=== PATIENT | male | born 1945 | race Caucasian/White ===

== ENCOUNTER 2016-12-19 02:10 | Inpatient (IN) | payer MEDICARE, OTHER ==
[2016-12-19] MEDS ORDERED: NITROGLYCERIN SL TABS 0.4 MG TAB SUBLINGUAL STA (02:15)
[2016-12-19] MEDS ORDERED: ASPIRIN 81 MG CHEW PO STA (02:15)
[2016-12-19] MEDS ORDERED: HEPARIN SODIUM,PORCINE/D5W PMX 25,000 UNIT in DEXTROSE/WATER 1 500ML.BAG IV SCH (02:30)
[2016-12-19] MEDS ORDERED: HEPARIN SODIUM,PORCINE 5,000 UNIT/ML 1 ML VIAL IV ONE (02:30)
[2016-12-19] MEDS ORDERED: HEPARIN SODIUM,PORCINE 5,000 UNIT/ML 1 ML VIAL IV PRN (02:30)
[2016-12-19] MEDS ORDERED: NITROGLYCERIN-D5W PMX 50 MG in DEXTROSE/WATER 1 250ML.BAG IV ONE (02:31)
[2016-12-19 02:33] LABS: Basophils # (A) 0.1 k/uL (0-0.2); Basophils % (A) 1 %; CH 30.3; Eosinophils # (A) 0.2 k/uL (0-0.7); Eosinophils % (A) 2 %; HCT 37.4 % (39.0-53.0); HDW 2.52; HGB 12.3 gm/dL (13.0-17.5); Luc % (Auto) 3; Lymphocytes # (A) 3.2 k/uL (1.0-4.8); Lymphocytes % (A) 42 %; MCH 29.5 pg (25.0-35.0); MCV 89.5 fL (80.0-100.0); Mean Platelet Volume 7.7; Monocytes # (A) 0.4 k/uL (0-1.0); Monocytes % (A) 6 %; Neutrophils # (A) 3.7 k/uL (1.3-7.7); Neutrophils % (A) 47 %; RBC 4.18 m/uL (4.30-5.90); RDW 13.8 % (11.5-15.5); WBC 7.7 k/uL (3.8-10.6); WBC (Perox) 7.81
[2016-12-19 02:43] LABS: ALT 46 U/L (21-72); AST 27 U/L (17-59); Alkaline Phosphatase 42 U/L (38-126); Amylase 64 U/L (30-110); Anion Gap 11 mmol/L; Blood Urea Nitrogen 26 mg/dL (9-20); Calcium 9.9 mg/dL (8.4-10.2); Carbon Dioxide 25 mmol/L (22-30); Chloride 108 mmol/L (98-107); Glucose 218 mg/dL (74-99); Magnesium 1.7 mg/dL (1.6-2.3); Non-African American GFR(MDRD) >60 (>60 ml/min/1.73 sqM); Potassium 4.3 mmol/L (3.5-5.1); Sodium 144 mmol/L (137-145); Total Bilirubin 0.4 mg/dL (0.2-1.3)
--- NOTE | 2016-12-19 02:43 | XR ---
EXAM: XR Chest, 1 View CLINICAL HISTORY: Reason: chest pain TECHNIQUE: Frontal view of the chest. COMPARISON: No relevant prior studies available. FINDINGS: Lungs: Unremarkable. No consolidation. Pleural space: Unremarkable. No pneumothorax. Heart: Mildly prominent with central vascular congestion. Mediastinum: Unremarkable. Bones/joints: Unremarkable. IMPRESSION: Mildly enlarged cardiac silhouette with central vascular congestion. No focal consolidative process or pleural effusions.
[2016-12-19 02:47] LABS: INR 1.1 (<1.2); Partial Thromboplastin Time 22.4 sec (22.0-30.0); Prothrombin Time 11.1 sec (9.0-12.0)
[2016-12-19 02:57] LABS: Creatine Kinase 142 U/L (55-170)
[2016-12-19 03:09] LABS: Creatine Kinase MB 1.9 ng/mL (0.0-2.4); Troponin I <0.012 ng/mL (0.000-0.034)
[2016-12-19] MEDS ORDERED: NITROGLYCERIN SL TABS 0.4 MG TAB SUBLINGUAL PRN ×3 (04:17→12:16)
[2016-12-19] MEDS ORDERED: INSULIN REGULAR 100 UNIT/ML VIAL SQ STA (04:29)
--- NOTE | 2016-12-19 04:29 | ED ---
Chest Pain HPI - General Chief Complaint: Chest Pain Stated Complaint: Chest Pain Time Seen by Provider: 12/19/16 02:14 Source: patient Mode of arrival: wheelchair Limitations: no limitations - History of Present Illness Initial Comments: This patient is 70-year-old man who presents to be evaluated for substernal chest pain. Patient states that the pain started less than hour before he arrived here, while he was sitting watching television. The patient states that it feels like a heaviness. He also has a numb feeling to his left upper extremity. Patient also felt like he was breaking into a cold sweat and he was a little short of breath. He states that the symptoms remind him of when he had to have a stent in 2001. Patient states that he took aspirin at home and he also tried a nitroglycerin but believes that the nitroglycerin was too old to provide much relief. MD Complaint: chest pain -: minutes(s) Onset: during rest Pain Location: substernal Pain Radiation: LUE Severity: moderate Quality: heaviness Consistency: constant Improves With: nothing Worsens With: nothing Anginal Symptoms: diaphoresis, dyspnea Treatments Prior to Arrival: aspirin, nitroglycerin - Related Data Home Medications Medication Instructions Recorded Confirmed Aspirin 325 mg PO DAILY 12/19/16 12/19/16 Atenolol [Tenormin] 25 mg PO DAILY 12/19/16 12/19/16 Fenofibrate Nanocrystallized 145 mg PO DAILY 12/19/16 12/19/16 [Tricor] Glimepiride [Amaryl] 4 mg PO BID 12/19/16 12/19/16 Sildenafil Citrate [Viagra] 100 mg PO ONCE 12/19/16 12/19/16 Simvastatin 80 mg PO DAILY 12/19/16 12/19/16 metFORMIN HCL 1,000 mg PO BID 12/19/16 12/19/16 Allergies Allergy/AdvReac Type Severity Reaction Status Date / Time cat dander Allergy Rash/Hives Verified 12/19/16 02:16 Egg Derived Allergy Rash/Hives Verified 12/19/16 02:16 Review of Systems ROS Statement: Those systems with pertinent positive or pertinent negative responses have been documented in the HPI. ROS Other: All systems not noted in ROS Statement are negative. Constitutional: Denies: fever, chills, weakness Respiratory: Reports: dyspnea. Denies: cough Cardiovascular: Reports: chest pain. Denies: palpitations, orthopnea, edema Gastrointestinal: Denies: abdominal pain, nausea, vomiting Genitourinary: Denies: dysuria, hematuria Musculoskeletal: Denies: back pain Skin: Denies: rash Neurological: Denies: headache, weakness, numbness EKG Findings - EKG Results: EKG: interpreted by MARAD, sinus rhythm, normal axis, normal QRS EKG shows: bradycardia (Rate approximately 45 bpm) - Blocks, [place], Hypertrophy, ST Abn: Repolarization changes or abnormalities: nonspecific abnormality, ST segment, and/or T wave Past Medical History Past Medical History: Diabetes Mellitus, Hyperlipidemia, Hypertension, Myocardial Infarction ([place]) History of Any Multi-Drug Resistant Organisms: None Reported Past Surgical History: Heart Catheterization With Stent, Hernia Repair, Tonsillectomy Additional Past Surgical History / Comment(s): wrist fracture Past Psychological History: No Psychological Hx Reported Smoking Status: Former smoker Past Alcohol Use History: None Reported Past Drug Use History: None Reported General Exam Limitations: no limitations General appearance: alert, in no apparent distress Head exam: Present: atraumatic, normocephalic Eye exam: Present: normal appearance. Absent: scleral icterus, conjunctival injection Respiratory exam: Present: normal lung sounds bilaterally. Absent: respiratory distress, wheezes, rales, rhonchi, stridor Cardiovascular Exam: Present: regular rate, normal rhythm, normal heart sounds. Absent: systolic murmur, diastolic murmur, rubs, gallop GI/Abdominal exam: Present: soft. Absent: distended, tenderness, guarding, rebound, rigid Extremities exam: Present: normal inspection, normal capillary refill. Absent: pedal edema, calf tenderness Back exam: Present: normal inspection. Absent: CVA tenderness (R), CVA tenderness (L) Neurological exam: Present: alert Skin exam: Present: warm, dry, intact, normal color. Absent: rash Course Vital Signs 12/19/16 12/19/16 12/19/16 02:11 02:58 04:07 Temperature 96.9 F L 96.9 F L Pulse Rate 44 L 56 L 53 L Respiratory 16 16 16 Rate Blood Pressure 155/73 150/73 126/65 O2 Sat by Pulse 96 97 98 Oximetry Critical Care Time Critical Care Time: Yes (35 minutes) Disposition Clinical Impression: Chest pain Disposition: ADMITTED IP TO THIS HOSP Condition: Fair
[2016-12-19] MEDS ORDERED: MORPHINE SULFATE 4 MG/ML SYRINGE IV STA (04:32)
[2016-12-19 04:54] LABS: Glucose,Whole Blood 211 mg/dL (75-99)
[2016-12-19 05:51] LABS: Glucose,Whole Blood 205 mg/dL (75-99)
[2016-12-19] MEDS: ATORVASTATIN 40 MG TAB PO SCH (08:11)
[2016-12-19] MEDS: FENOFIBRATE 160 MG TAB PO SCH (08:11)
[2016-12-19] MEDS: GLIMEPIRIDE 4 MG TAB PO SCH ×3 (08:11→16:56)
[2016-12-19] MEDS: INSULIN LISPRO (humaLOG) 300 UNIT/3 ML VIAL SQ SCH ×4 (08:11→21:01)
--- NOTE | 2016-12-19 08:41 | P.CRDCN ---
History of Present Illness Consult reason: chest pain History of present illness: 70-year-old male patient presenting with chest discomfort at rest that reminded him of his previous chest discomfort prior to coronary stenting about 15 years back. He was also a bit sweaty. He is on appropriate medical treatment for CAD status post stenting Examination is normal vitals are stable heart sounds are normal no murmurs EKG was reviewed and does not show any definite ST segment abnormalities but we don't have an EKG for comparison. EKG from the office will be obtained today First cardiac enzyme is normal he is on IV heparin I will restart atenolol 25 mg by mouth daily and should not be held for heart rates of 50 bpm Please see full dictation by Dr. byrd Past Medical History Past Medical History: Diabetes Mellitus, Hyperlipidemia, Hypertension, Myocardial Infarction ([place]) Last Myocardial Infarction Date:: 2001 History of Any Multi-Drug Resistant Organisms: None Reported Past Surgical History: Heart Catheterization With Stent, Hernia Repair, Tonsillectomy Additional Past Surgical History / Comment(s): wrist fracture Date of Last Stent Placement:: 2001 Past Psychological History: No Psychological Hx Reported Smoking Status: Former smoker Past Alcohol Use History: None Reported Past Drug Use History: None Reported - Past Family History Father Additional Family Medical History / Comment(s): from a aneurysm at the age of 47-48 Mother Family Medical History: Hypertension Medications and Allergies Home Medications Medication Instructions Recorded Confirmed Type Aspirin 325 mg PO DAILY 12/19/16 12/19/16 History Atenolol [Tenormin] 25 mg PO DAILY 12/19/16 12/19/16 History Fenofibrate Nanocrystallized 145 mg PO DAILY 12/19/16 12/19/16 History [Tricor] Glimepiride [Amaryl] 4 mg PO BID 12/19/16 12/19/16 History Sildenafil Citrate [Viagra] 100 mg PO ONCE 12/19/16 12/19/16 History Simvastatin 80 mg PO DAILY 12/19/16 12/19/16 History metFORMIN HCL 1,000 mg PO BID 12/19/16 12/19/16 History Allergies Allergy/AdvReac Type Severity Reaction Status Date / Time cat dander Allergy Rash/Hives Verified 12/19/16 02:16 Egg Derived Allergy Rash/Hives Verified 12/19/16 02:16 Physical Exam Vitals: Vital Signs Temp Pulse Pulse Pulse Resp BP BP 12/19/16 08:00 97.1 F L 56 L 17 119/71 12/19/16 07:59 18 12/19/16 06:45 50 L 46 L 18 12/19/16 04:37 97.1 F L 84 18 116/70 12/19/16 04:07 96.9 F L 53 L 16 126/65 12/19/16 02:58 56 L 16 150/73 12/19/16 02:11 96.9 F L 44 L 16 155/73 Pulse Ox 12/19/16 08:00 97 12/19/16 07:59 12/19/16 06:45 12/19/16 04:37 98 12/19/16 04:07 98 12/19/16 02:58 97 12/19/16 02:11 96 Intake and Output 12/18/16 12/19/16 12/19/16 22:59 06:59 14:59 Intake Total 526 Balance 526 Intake: IV 40 Heparin Sodium,Porcine/ 40 D5w Pmx 25,000 unit In Dextrose/Water 1 500ml. bag @ 12 UNITS/KG/HR 19. 81 mls/hr IV .Q24H [facility] Rx #:[id number] Intake, IV Titration 6 Amount Nitroglycerin-D5w Pmx 50 6 mg In Dextrose/Water 1 250ml.bag @ 10 MCG/MIN 3 mls/hr IV .Q24H ONE Rx#: [id number] Oral 480 Other: Voiding Method Toilet Toilet # Voids 1 Weight 86 kg Results 12/19/16 02:10 12/19/16 02:10 Cardiac Enzymes 12/19/16 12/19/16 Range/Units 02:10 02:10 AST 27 (17-59) U/L CK-MB (CK-2) 1.9 (0.0-2.4) ng/mL Troponin I <0.012 (0.000-0.034) ng/mL Coagulation 12/19/16 Range/Units 02:10 PT 11.1 (9.0-12.0) sec APTT 22.4 (22.0-30.0) sec CBC 12/19/16 Range/Units 02:10 WBC 7.7 (3.8-10.6) k/uL RBC 4.18 L (4.30-5.90) m/uL Hgb 12.3 L (13.0-17.5) gm/dL Hct 37.4 L (39.0-53.0) % Plt Count 223 (150-450) k/uL Comprehensive Metabolic Panel 12/19/16 Range/Units 02:10 Sodium 144 (137-145) mmol/L Potassium 4.3 (3.5-5.1) mmol/L Chloride 108 H (98-107) mmol/L Carbon Dioxide 25 (22-30) mmol/L BUN 26 H (9-20) mg/dL Creatinine 1.00 (0.66-1.25) mg/dL Glucose 218 H (74-99) mg/dL Calcium 9.9 (8.4-10.2) mg/dL AST 27 (17-59) U/L ALT 46 (21-72) U/L Alkaline Phosphatase 42 (38-126) U/L Total Protein 7.0 (6.3-8.2) g/dL Albumin 4.3 (3.5-5.0) g/dL Current Medications Generic Name Dose Route Start Last Admin Trade Name Freq PRN Reason Stop Dose Admin Aspirin 81 mg 12/19/16 09:00 Aspirin PO DAILY [facility] Atorvastatin Calcium 40 mg 12/19/16 09:00 12/19/16 08:11 Lipitor PO 40 mg DAILY [facility] Administration Fenofibrate 160 mg 12/19/16 09:00 12/19/16 08:11 Lofibra PO 160 mg DAILY [facility] Administration Glimepiride 4 mg 12/19/16 07:30 12/19/16 08:11 Amaryl PO 4 mg BID-W/MEALS [facility] Administration Heparin Sodium (Porcine) 0 unit 12/19/16 02:30 Heparin IV PER PROTOCOL PRN Low PTT Protocol Heparin Sodium/Dextrose 25,000 500 mls @ 19.81 mls/hr 12/19/16 02:30 02:53 unit/ IV Solution IV 12 units/kg/hr .Q24H [facility] 19.81 mls/hr Protocol Administration 12 UNITS/KG/HR Nitroglycerin/Dextrose 50 mg/ 250 mls @ 3 mls/hr 12/19/16 02:31 12/19/16 02: 52 IV Solution IV 12/20/16 02:30 10 mcg/min .Q24H ONE 3 mls/hr Protocol Administration 10 MCG/MIN Insulin Human Lispro 0 unit 12/19/16 07:30 12/19/16 08:11 Humalog SQ Not Given ACHS [facility] Protocol Nitroglycerin 0.4 mg 12/19/16 04:17 Nitrostat SUBLINGUAL Q5M PRN Chest Pain Intake and Output 12/18/16 12/19/16 12/19/16 22:59 06:59 14:59 Intake Total 526 Balance 526 Intake: IV 40 Heparin Sodium,Porcine/ 40 D5w Pmx 25,000 unit In Dextrose/Water 1 500ml. bag @ 12 UNITS/KG/HR 19. 81 mls/hr IV .Q24H [facility] Rx #:[id number] Intake, IV Titration 6 Amount Nitroglycerin-D5w Pmx 50 6 mg In Dextrose/Water 1 250ml.bag @ 10 MCG/MIN 3 mls/hr IV .Q24H ONE Rx#: [id number] Oral 480 Other: Voiding Method Toilet Toilet # Voids 1 Weight 86 kg 12/19/16 02:10 12/19/16 02:10
--- NOTE | 2016-12-19 08:42 | P.CRDCN ---
History of Present Illness Consult date: 12/19/16 Requesting physician: Axel Holt Consult reason: chest pain Chief complaint: Chest pain History of present illness: This is a pleasant 70-year-old gentleman with history of coronary artery disease and prior stenting of the proximal LAD in 2001, he lives up [place] at that time when the procedure was done, he has history of diabetes, hypertension, hyperlipidemia, he is a nonsmoker. Exercises on the treadmill regularly. He states that around midnight last night he developed midsternal chest pressure and heaviness with associated diaphoresis. He states that the symptoms were exactly what he had in 2001. Patient had old nitroglycerin at home that he attempted to take without relief of symptoms, he took 2 baby aspirins and came to ER. Blood pressure on arrival here 155/70, heart rate in the 40s to 50s and temperature 96.9, he is 96% on room air. Chest x-ray shows mildly enlarged cardiac silhouette with central vascular congestion. EKG shows sinus bradycardia with anterior ST-T wave changes. EKG this morning shows sinus bradycardia with anterior ST-T wave changes. White blood cell count 7.7, hemoglobin 12.3, platelet count 223. D-dimer 0.4. Potassium 4.3, BUN 26, creatinine 1.0. Mag 1.7. Initial troponin negative. He still has mild chest pressure this morning, on heparin and nitro drips. Past Medical History Past Medical History: Diabetes Mellitus, Hyperlipidemia, Hypertension, Myocardial Infarction ([place]) Last Myocardial Infarction Date:: 2001 History of Any Multi-Drug Resistant Organisms: None Reported Past Surgical History: Heart Catheterization With Stent, Hernia Repair, Tonsillectomy Additional Past Surgical History / Comment(s): wrist fracture Date of Last Stent Placement:: 2001 Past Psychological History: No Psychological Hx Reported Smoking Status: Former smoker Past Alcohol Use History: None Reported Past Drug Use History: None Reported - Past Family History Father Additional Family Medical History / Comment(s): from a aneurysm at the age of 47-48 Mother Family Medical History: Hypertension Medications and Allergies Home Medications Medication Instructions Recorded Confirmed Type Aspirin 325 mg PO DAILY 12/19/16 12/19/16 History Atenolol [Tenormin] 25 mg PO DAILY 12/19/16 12/19/16 History Fenofibrate Nanocrystallized 145 mg PO DAILY 12/19/16 12/19/16 History [Tricor] Glimepiride [Amaryl] 4 mg PO BID 12/19/16 12/19/16 History Sildenafil Citrate [Viagra] 100 mg PO ONCE 12/19/16 12/19/16 History Simvastatin 80 mg PO DAILY 12/19/16 12/19/16 History metFORMIN HCL 1,000 mg PO BID 12/19/16 12/19/16 History Allergies Allergy/AdvReac Type Severity Reaction Status Date / Time cat dander Allergy Rash/Hives Verified 12/19/16 02:16 Egg Derived Allergy Rash/Hives Verified 12/19/16 02:16 Physical Exam Vitals: Vital Signs Temp Pulse Pulse Pulse Resp BP BP 12/19/16 08:00 97.1 F L 56 L 17 119/71 12/19/16 07:59 18 12/19/16 06:45 50 L 46 L 18 12/19/16 04:37 97.1 F L 84 18 116/70 12/19/16 04:07 96.9 F L 53 L 16 126/65 12/19/16 02:58 56 L 16 150/73 12/19/16 02:11 96.9 F L 44 L 16 155/73 Pulse Ox 12/19/16 08:00 97 12/19/16 07:59 12/19/16 06:45 12/19/16 04:37 98 12/19/16 04:07 98 12/19/16 02:58 97 12/19/16 02:11 96 Intake and Output 12/18/16 12/19/16 12/19/16 22:59 06:59 14:59 Intake Total 526 Balance 526 Intake: IV 40 Heparin Sodium,Porcine/ 40 D5w Pmx 25,000 unit In Dextrose/Water 1 500ml. bag @ 12 UNITS/KG/HR 19. 81 mls/hr IV .Q24H [facility] Rx #:[id number] Intake, IV Titration 6 Amount Nitroglycerin-D5w Pmx 50 6 mg In Dextrose/Water 1 250ml.bag @ 10 MCG/MIN 3 mls/hr IV .Q24H [facility] Rx#: [id number] Oral 480 Other: Voiding Method Toilet Toilet # Voids 1 Weight 86 kg PHYSICAL EXAMINATION: HEENT: Head is atraumatic, normocephalic. Pupils equal, round. Neck is supple. There is no elevated jugular venous pressure. HEART EXAMINATION: Heart S1, S2 normal. No murmur or gallop heard. CHEST EXAMINATION: Lungs are clear to auscultation and precussion. No chest wall tenderness is noted on palpation or with deep breathing. ABDOMEN: Soft, nontender. Bowel sounds are heard. No organomegaly noted. EXTREMITIES: 2+ peripheral pulses with no evidence of peripheral edema and no calf tenderness noted. NEUROLOGIC patient is awake, alert and oriented -3. . Results 12/19/16 02:10 12/19/16 02:10 Cardiac Enzymes 12/19/16 12/19/16 Range/Units 02:10 02:10 AST 27 (17-59) U/L CK-MB (CK-2) 1.9 (0.0-2.4) ng/mL Troponin I <0.012 (0.000-0.034) ng/mL Coagulation 12/19/16 Range/Units 02:10 PT 11.1 (9.0-12.0) sec APTT 22.4 (22.0-30.0) sec CBC 12/19/16 Range/Units 02:10 WBC 7.7 (3.8-10.6) k/uL RBC 4.18 L (4.30-5.90) m/uL Hgb 12.3 L (13.0-17.5) gm/dL Hct 37.4 L (39.0-53.0) % Plt Count 223 (150-450) k/uL Comprehensive Metabolic Panel 12/19/16 Range/Units 02:10 Sodium 144 (137-145) mmol/L Potassium 4.3 (3.5-5.1) mmol/L Chloride 108 H (98-107) mmol/L Carbon Dioxide 25 (22-30) mmol/L BUN 26 H (9-20) mg/dL Creatinine 1.00 (0.66-1.25) mg/dL Glucose 218 H (74-99) mg/dL Calcium 9.9 (8.4-10.2) mg/dL AST 27 (17-59) U/L ALT 46 (21-72) U/L Alkaline Phosphatase 42 (38-126) U/L Total Protein 7.0 (6.3-8.2) g/dL Albumin 4.3 (3.5-5.0) g/dL Current Medications Generic Name Dose Route Start Last Admin Trade Name Nita PRN Reason Stop Dose Admin Aspirin 325 mg 12/20/16 09:00 Aspirin PO DAILY [facility] Atorvastatin Calcium 40 mg 12/19/16 09:00 12/19/16 08:11 Lipitor PO 40 mg DAILY [facility] Administration Fenofibrate 160 mg 12/19/16 09:00 12/19/16 08:11 Lofibra PO 160 mg DAILY [facility] Administration Glimepiride 4 mg 12/19/16 07:30 12/19/16 08:11 Amaryl PO 4 mg BID-W/MEALS [facility] Administration Heparin Sodium (Porcine) 0 unit 12/19/16 02:30 Heparin IV PER PROTOCOL PRN Low PTT Protocol Heparin Sodium/Dextrose 25,000 500 mls @ 19.81 mls/hr 12/19/16 02:30 02:53 unit/ IV Solution IV 12 units/kg/hr .Q24H [facility] 19.81 mls/hr Protocol Administration 12 UNITS/KG/HR Nitroglycerin/Dextrose 50 mg/ 250 mls @ 3 mls/hr 12/19/16 02:31 12/19/16 02: 52 IV Solution IV 12/20/16 02:30 10 mcg/min .Q24H ONE 3 mls/hr Protocol Administration 10 MCG/MIN Insulin Human Lispro 0 unit 12/19/16 07:30 12/19/16 08:11 Humalog SQ Not Given ACHS [facility] Protocol Nitroglycerin 0.4 mg 12/19/16 04:17 Nitrostat SUBLINGUAL Q5M PRN Chest Pain Intake and Output 12/18/16 12/19/16 12/19/16 22:59 06:59 14:59 Intake Total 526 Balance 526 Intake: IV 40 Heparin Sodium,Porcine/ 40 D5w Pmx 25,000 unit In Dextrose/Water 1 500ml. bag @ 12 UNITS/KG/HR 19. 81 mls/hr IV .Q24H [facility] Rx #:[id number] Intake, IV Titration 6 Amount Nitroglycerin-D5w Pmx 50 6 mg In Dextrose/Water 1 250ml.bag @ 10 MCG/MIN 3 mls/hr IV .Q24H [facility] Rx#: [id number] Oral 480 Other: Voiding Method Toilet Toilet # Voids 1 Weight 86 kg 12/19/16 02:10 12/19/16 02:10 EKG Interpretations (text) EKG shows normal sinus rhythm with nonspecific changes in the anterior leads. Assessment and Plan Plan: Assessment and Plan #1 chest discomfort suggestive of possible acute coronary syndrome. EKG shows normal sinus rhythm with nonspecific changes in the anterior leads. Initial troponin negative #2 known history of coronary artery disease with prior LAD stenting in 2001 #3 hypertension #4 diabetes #5 hyperlipidemia Plan We will obtain a stat echocardiogram with Doppler study. Continue IV heparin and IV nitroglycerin. Resume atenolol. Lipid profile. Further recommendations to follow. DNP note has been reviewed, I agree with a documented findings and plan of care. Patient was seen and examined.
[2016-12-19] MEDS: ASPIRIN 81 MG CHEW PO SCH (09:26)
--- NOTE | 2016-12-19 09:42 | ECHOF ---
Referral Reason:assess lvf MEASUREMENTS -------- HEIGHT: 172.7 cm WEIGHT: 85.7 kg BP: 119/71 RVIDd: 3.4 cm (< 3.3) IVSd: 1.5 cm (0.6 - 1.1) LVIDd: 4.6 cm (3.9 - 5.3) LVPWd: 1.5 cm (0.6 - 1.1) EDV(Teich): 95 ml IVSs: 2.0 cm LVIDs: 3.1 cm LVPWs: 2.0 cm %IVS Thck: 33 % ESV(Teich): 38 ml EF(Teich): 60 % %FS: 32 % SV(Teich): 58 ml LA Diam: 4.5 cm (2.7 - 3.8) IVC: 2.8 cm LALs A4C: 6.5 cm LAAs A4C: 28.8 cm LAESV A-L A4C: 108 ml LAESV MOD A4C: 103 ml LALs A2C: 5.7 cm LAAs A2C: 24.7 cm LAESV A-L A2C: 90 ml LAESV MOD A2C: 87 ml LAESV(A-L): 105 ml LAESV Index (A-L): 52.57 ml/m Ao Diam: 3.4 cm (2.0 - 3.7) AV Cusp: 2.5 cm (1.5 - 2.6) MV EXCURSION: 21.800 mm (> 18.000) MV EF SLOPE: 15 mm/s (70 - 150) EPSS: 0.9 cm MV E Darron: 1.31 m/s MV DecT: 437 ms MV Dec [place]: 3.0 m/s MV A Darron: 1.52 m/s MV E/A Ratio: 0.86 MV PHT: 127 ms E/E': 33.07 E': 0.04 m/s MV Vmax: 1.81 m/s MV Vmean: 0.90 m/s MV maxP.17 mmHg MV meanP.96 mmHg MV VTI: 65.8 cm AV Vmax: 1.17 m/s AV maxP.43 mmHg AR Vmax: 2.82 m/s AR maxP.79 mmHg AR PHT: 989 ms AR Dec Time: 3411 ms AR Dec [place]: 0.8 m/s FINDINGS -------- Sinus rhythm. This was a technically good study. The left ventricular size is normal. There is moderate concentric left ventricular hypertrophy. Overall left ventricular systolic function is normal with, an EF between 55 - 60 %. The right ventricle is mildly enlarged. LA is severely dilated >40 ml/m2 The right atrium is normal in size. There is mild aortic valve sclerosis. There is mild aortic regurgitation. The mitral valve leaflets are mild to moderately thickened. Mild mitral annular calcification present. Mild mitral regurgitation is present. The peak and mean MV gradients are 13.17mmHg 3.96mmHg as measured by doppler. The tricuspid valve appears structurally normal. Trace/mild (physiologic) pulmonic regurgitation. The aortic root size is normal. Normal inferior vena cava with normal inspiratory collapse consistent with estimated right atrial pressure of 5 mmHg. There is no pericardial effusion. CONCLUSIONS -------- 1. Sinus rhythm. 2. There is mild aortic regurgitation. 3. The mitral valve leaflets are mild to moderately thickened. 4. Mild mitral annular calcification present. 5. Mild mitral regurgitation is present. 6. The peak and mean MV gradients are 13.17mmHg 3.96mmHg as measured by doppler. 7. The tricuspid valve appears structurally normal. 8. Trace/mild (physiologic) pulmonic regurgitation. 9. The aortic root size is normal. 10. Normal inferior vena cava with normal inspiratory collapse consistent with estimated right atrial pressure of 5 mmHg. 11. There is no pericardial effusion. 12. This was a technically good study. 13. The left ventricular size is normal. 14. There is moderate concentric left ventricular hypertrophy. 15. Overall left ventricular systolic function is normal with, an EF between 55 - 60 %. 16. The right ventricle is mildly enlarged. 17. LA is severely dilated >40 ml/m2 18. The right atrium is normal in size. 19. There is mild aortic valve sclerosis. HUMAN SERVICES SUPERVISOR: Katlyn Gupta RDCS
[2016-12-19 09:43] LABS: Creatine Kinase MB 42.5 ng/mL (0.0-2.4); Troponin I 4.52 ng/mL (0.000-0.034)
[2016-12-19] MEDS ORDERED: ATORVASTATIN 80 MG TAB PO STA (09:55)
[2016-12-19] MEDS ORDERED: SODIUM CHLORIDE 0.9% 1,000 ML in EMPTY BAG 1 BAG IV ONE (09:55)
[2016-12-19] MEDS ORDERED: ALPRAZolam 0.25 MG TAB PO PRN (09:55)
[2016-12-19] MEDS ORDERED: ALPRAZolam 0.5 MG TAB PO PRN (09:55)
[2016-12-19] MEDS ORDERED: ASPIRIN 325 MG TAB PO STA (09:55)
[2016-12-19 09:59] LABS: Cholesterol 129 mg/dL (<200); HDL Cholesterol 38 mg/dL (40-60)
[2016-12-19] MEDS ORDERED: HEPARIN SODIUM 1,000 UN/ML (10ML VL) ONE (10:37)
[2016-12-19] MEDS ORDERED: MIDAZOLAM 2 MG/2 ML VIAL ONE (10:37)
[2016-12-19] MEDS ORDERED: VERAPAMIL 2.5 MG/ML 2 ML AMP ONE (10:37)
[2016-12-19] MEDS ORDERED: LIDOCAINE 2% INJ 20 MG/ML (20 ML MDV) ONE (10:37)
[2016-12-19] MEDS ORDERED: IV FLUID CONTINUATION 1,000 ML IV ONE (10:57)
[2016-12-19] MEDS ORDERED: MIDAZOLAM 2 MG/2 ML VIAL IV ONE (11:15)
[2016-12-19] MEDS ORDERED: LIDOCAINE 2% INJ 20 MG/ML SQ ONE (11:17)
[2016-12-19] MEDS: VERAPAMIL SYRINGE (5 MG/10 ML) INTRAARTER ONE ×2 (11:18→12:08)
[2016-12-19] MEDS ORDERED: BIVALIRUDIN BOLUS 250 MG/50 ML IV ONE (11:37)
[2016-12-19] MEDS ORDERED: BIVALIRUDIN 250 MG in SODIUM CHLORIDE 0.9% 50 ML IV ONE (11:38)
[2016-12-19] MEDS ORDERED: CLOPIDOGREL 75 MG TAB ONE (11:39)
[2016-12-19] MEDS ORDERED: CLOPIDOGREL 75 MG TAB PO ONE (11:47)
[2016-12-19] MEDS ORDERED: NITROGLYCERIN 1000MCG/10ML SYRINGE INTRACORON ONE (12:02)
[2016-12-19] MEDS ORDERED: MAG HYDROX/AL HYDROX/SIMETH 30 ML CUP PO PRN (12:16)
[2016-12-19] MEDS ORDERED: ZOLPIDEM 5 MG TAB PO PRN (12:16)
[2016-12-19] MEDS ORDERED: ATROPINE SULFATE 0.1 MG/ML 10ML SYRINGE IV PRN (12:16)
[2016-12-19] MEDS ORDERED: RX INFO: IV CONTRAST WAS GIVEN 1 EACH MISC MISCELLANE PRN (12:16)
[2016-12-19] MEDS ORDERED: IOHEXOL 350 MG/ML 125ML BOTTLE INJ ONE ×2 (12:19)
[2016-12-19] MEDS ORDERED: SODIUM CHLORIDE 0.9% 1,000 ML IV SCH (12:30)
[2016-12-19 12:54] LABS: Glucose,Whole Blood 194 mg/dL (75-99)
[2016-12-19 15:06] LABS: Creatine Kinase MB 65.7 ng/mL (0.0-2.4); Troponin I 23.2 ng/mL (0.000-0.034)
--- NOTE | 2016-12-19 16:07 | P.HPIM ---
History of Present Illness H&P Date: 12/19/16 Chief Complaint: Chest pain History of presenting complaint: This is a very pleasant [address] Benentt. Patient had a stent in 2001. When he had an acute OK. Other stable medical conditions include diabetes, hypertension, hyperlipidemia. Should on the nystatin of it chest pressure gradient across some radiation protocol in a cold sweat dizzy tired and rundown last year quite some time. Decided to come to the ER. Patient ruled in for an acute non-Q-wave OK and was taken to the cardiac Ultrasound Manager. No bright GEN.: Tired EYES: None HEENT: None NECK: None RESPIRATORY: None CARDIOVASCULAR: As above GASTROINTESTINAL: None GENITOURINARY: None MUSCULOSKELETAL: None LYMPHATICS: None HEMATOLOGICAL: None PSYCHIATRY: None NEUROLOGICAL: None Past medical history: Diabetes, hypertension, hyperlipidemia, coronary artery disease distended 2001 Past surgical history: Cardiac stent, hernia repair, colostomy, wrist fracture Home medications: Reviewed in the electronic records. 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 . Patient smoked for about 40 years. Stopped 15 years ago Family history: Hypertension and a aneurysm ALLERGIES: Cat dander, anicteric does VITAL SIGNS: 98, 55, 17, 106/56, 95% room air GENERAL: Average built, laying in bed, comfortable. EYES: Pupils equal. Conjunctiva normal. HEENT: External appearance of nose and ears normal, oral cavity grossly normal. NECK: JVD not raised; masses not palpable. HEART: First and second heart sounds are normal; no edema. LUNGS: Respiratory rate normal; some decreased breath sounds. ABDOMEN: Soft, nontender, liver spleen not palpable, no masses palpable. LYMPHATICS: No lymph nodes palpable in the axilla and neck. PSYCH: Alert and oriented x3; mood and affect normal. NEUROLOGICAL: Cranial nerves grossly intact; no facial asymmetry, power and sensation grossly intact Extremities: Cardiac cath exit site in the right wrist with a dressing on the same. Investigations: ST segment depression in inferior leads and some lateral leads Troponin 0.012, 4.5, 23.2, LDL 55 Assessment: Acute non-ST elevation OK with acute cardiac intervention, full report not available -Coronary artery disease with prior stent in 2001 -Diabetes mellitus type 2 on oral hypoglycemic -Hyperlipidemia -Essential hypertension Plan: Patient is on aspirin and Lipitor Plavix, sliding scale. Care was discussed with the patient to follow with cardiology. Past Medical History Past Medical History: Diabetes Mellitus, Hyperlipidemia, Hypertension, Myocardial Infarction (OK) Last Myocardial Infarction Date:: 2001 History of Any Multi-Drug Resistant Organisms: None Reported Past Surgical History: Heart Catheterization With Stent, Hernia Repair, Tonsillectomy Additional Past Surgical History / Comment(s): wrist fracture Date of Last Stent Placement:: 2001 Past Psychological History: No Psychological Hx Reported Smoking Status: Former smoker Past Alcohol Use History: None Reported Past Drug Use History: None Reported - Past Family History Father Additional Family Medical History / Comment(s): from a aneurysm at the age of 47-48 Mother Family Medical History: Hypertension Medications and Allergies Home Medications Medication Instructions Recorded Confirmed Type Aspirin 325 mg PO DAILY 12/19/16 12/19/16 History Atenolol [Tenormin] 25 mg PO DAILY 12/19/16 12/19/16 History Dulaglutide [Trulicity] 1.5 mg SQ Q7D 12/19/16 12/19/16 History Fenofibrate Nanocrystallized 145 mg PO DAILY 12/19/16 12/19/16 History [Tricor] Glimepiride [Amaryl] 4 mg PO BID 12/19/16 12/19/16 History Simvastatin 80 mg PO DAILY 12/19/16 12/19/16 History metFORMIN HCL 1,000 mg PO BID 12/19/16 12/19/16 History Allergies Allergy/AdvReac Type Severity Reaction Status Date / Time cat dander Allergy Rash/Hives Verified 12/19/16 02:16 Egg Derived Allergy Rash/Hives Verified 12/19/16 02:16 Results CBC & Chem 7: 12/19/16 02:10 12/19/16 02:10
[2016-12-19 16:29] LABS: Glucose,Whole Blood 164 mg/dL (75-99)
--- NOTE | 2016-12-19 16:56 | CC ---
CARDIAC CATHETERIZATION REPORT DATE OF SERVICE: December 19, 2016. PERFORMING PHYSICIAN: Zev Joel MD, water hauler. PROCEDURE PERFORMED: 1. Selective right and left coronary angiogram. 2. Successful stenting of the mid left anterior descending artery using a 3.25 x 15 mm Xience CARMELA with good angiographic results. INDICATION: This is a pleasant 70-year-old gentleman who sees Dr. Duncan as an outpatient who presented to the hospital with chest discomfort and ruled in for acute non ST elevation myocardial infarction. He was seen and evaluated by Dr. Victoria who recommended proceeding with heart catheterization. APPROACH: Right radial artery. COMPLICATION: None. LEVEL OF SEDATION: Moderate with sedation length of 59 minutes. PROCEDURE: Description after obtaining informed consent, the patient was brought to the cardiac laborer bituminous paving. The right radial artery was cannulated using micropuncture technique, the micropuncture wire passed easily. Then I placed a 6-Slovak sheath in the right radial artery. Subsequently I gave the patient 2 mg of Verapamil IA. After that, I did selective right and left coronary angiogram using JR4 and JL3 0.5 catheters. After that, I decided to intervene on the LAD. Please see a separate paragraph for that. SELECTIVE CORONARY ANGIOGRAM: 1. The RCA is a large caliber vessel and it is a dominant vessel. 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 The mid RCA had a lesion appears to be in the range of 70%. The RCA distally has long tubular lesion up to about 80%. The RCA bifurcates into PDA and PLV branches. The PLV branches is a small branch and the PDA branch appeared to be a large caliber vessel with mild disease only. 2. The left main is a large caliber vessel with mild disease in the mid shaft. It bifurcates into the left circumflex and left anterior descending artery. 3. The left circumflex is a large caliber vessel. It is a nondominant vessel. The proximal circ is angiographically normal and gives rise into the 1st obtuse marginal branch which bifurcates into 2 separate branches. The 1st OM has a lesion just before the bifurcation into 2 small branches appeared to be in the range of 80- 90%. The circ continues after that as a moderate caliber vessel in the AV groove. 4. The LAD: The proximal LAD is stented with mild in-stent restenosis. The mid LAD has what seems to be a hazy lesion seems to be in the range of 70%. This is just after the bifurcation of the 1st diagonal branch which has mild disease only. The LAD distally appeared to have mild disease only and gives rise into the 2nd diagonal branch. The 2nd diagonal is small to medium caliber vessel. PCI of the LAD. Anticoagulation was initiated using Angiomax. Subsequently I took JL35 guide and the left main was engaged. A whisper wire was used to wire the left anterior descending artery. Subsequently I tried to do direct stenting on the lesion in the mid LAD but the stent would not cross the mid LAD. So I decided to use a viola wire which was a run-through wire and in spite of the viola wire I was unable to advance the stent to the mid-LAD but finally I was able to [facility]. I did place a stent under fluoroscopy guidance and then I deployed the stent under 14 atmospheres for 20 seconds. The following angiogram showed good angiographic results. Without perforation and without dissection with good flow in the LAD. CONCLUSION: 1. Severe disease involving the mid and distal right coronary artery with aneurysmal proximal RCA. 2. Mild disease involving the left main coronary artery. 3. Critical disease involving the 1st obtuse marginal branch of the left circumflex. 4. Patent stent in the proximal LAD. 5. Hazy lesion involving the mid LAD with what seems to be related to plaque rupture and thrombus formation. 6. Successful stenting of the mid LAD using 3.25 x 15 mm Xience CARMELA with good angiographic results. POSTPROCEDURE MANAGEMENT: 1. Dual anti-platelet therapy. 2. The patient will be scheduled to undergo a PCI of the left circumflex and possibly the RCA as well. MMODL / IJN: [id number] /
[2016-12-19 20:53] LABS: Glucose,Whole Blood 155 mg/dL (75-99)
[2016-12-20 05:54] LABS: Glucose,Whole Blood 133 mg/dL (75-99)
[2016-12-20 06:25] LABS: Basophils % (A) 0 %; CH 30.1; CHCM 33.7; Eosinophils # (A) 0.1 k/uL (0-0.7); Eosinophils % (A) 2 %; HCT 32.7 % (39.0-53.0); HDW 2.48; HGB 10.7 gm/dL (13.0-17.5); Luc # (Auto) 0.11; Luc % (Auto) 2; Lymphocytes # (A) 1.4 k/uL (1.0-4.8); Lymphocytes % (A) 19 %; MCH 29.4 pg (25.0-35.0); MCHC 32.7 g/dL (31.0-37.0); MCV 89.7 fL (80.0-100.0); Mean Platelet Volume 7.9; Monocytes # (A) 0.4 k/uL (0-1.0); Monocytes % (A) 6 %; Neutrophils # (A) 5.1 k/uL (1.3-7.7); Neutrophils % (A) 72 %; RBC 3.65 m/uL (4.30-5.90); RDW 13.6 % (11.5-15.5); WBC 7.1 k/uL (3.8-10.6); WBC (Perox) 7.71
[2016-12-20] MEDS: INSULIN LISPRO (humaLOG) 300 UNIT/3 ML VIAL SQ SCH ×5 (06:43→20:51)
[2016-12-20] MEDS: GLIMEPIRIDE 4 MG TAB PO SCH ×3 (06:44→17:07)
[2016-12-20 06:48] LABS: Cholesterol 123 mg/dL (<200); HDL Cholesterol 31 mg/dL (40-60); Non-African American GFR(MDRD) >60 (>60 ml/min/1.73 sqM)
[2016-12-20] MEDS: FENOFIBRATE 160 MG TAB PO SCH (08:18)
[2016-12-20] MEDS: ATORVASTATIN 40 MG TAB PO SCH (08:18)
[2016-12-20] MEDS: ASPIRIN 81 MG CHEW PO SCH (08:19)
[2016-12-20] MEDS ORDERED: ASPIRIN 325 MG TAB PO SCH (09:00)
[2016-12-20] MEDS: NITROGLYCERIN-D5W PMX 50 MG in DEXTROSE/WATER 1 250ML.BAG IV SCH (10:45)
[2016-12-20 12:14] LABS: Glucose,Whole Blood 124 mg/dL (75-99)
[2016-12-20] MEDS: CLOPIDOGREL 75 MG TAB PO SCH (12:15)
[2016-12-20] MEDS: ATENOLOL 25 MG TAB PO SCH (12:15)
--- NOTE | 2016-12-20 12:41 | P.PN ---
<Emerita Rodríguez - Last Filed: 12/20/16 12:16> Progress Note - Text DATE OF SERVICE: 12/20/2016 PRESENTING COMPLAINT: Chest pain HISTORY OF PRESENT ILLNESS: 70-year-old patient who presented with chest pain with some radiation and pressure, cold, sweaty, dizzy, tired and rundown for of paramount of time. Patient ruled in for an acute non-Q-wave SC was taken to the cardiac Grocery Clerk Checking. INTERVAL HISTORY: 12/20/2016: Patient seen in follow-up, had cardiac catheterization yesterday 12/19/2016, stent placed in the LAD, patient will undergo PCI of the left circumflex and possibly the RCA as well, tomorrow. Patient will require dual antiplatelet therapy. Sitting up in bed appears comfortable no complaints of chest pain, ambulatory within the room, appetite fair eating approximately 50-75% of his meals, last BM 12/19/2016. REVIEW OF SYSTEMS: Done for constitutional ,cardiovascular, GI, pulmonary with relevant findings as above. CURRENT MEDICATIONS Xanax, aspirin, Tenormin, Lipitor, Plavix, low fiber, Amaryl, nitroglycerin drip , Ambien. PHYSICAL EXAM VITAL SIGNS: Temperature 97.9, pulse 63, respiratory rate 17, blood pressure 114/64, oxygen saturation 96% on 2 L GENERAL APPEARANCE: Lying in bed, not in distress. EYES: Pupils equal. Conjunctiva normal. NECK: JVD not raised. Mass not palpable. RESPIRATORY: Respiratory effort normal. Lungs decreased to auscultation. CARDIOVASCULAR: First and second sounds normal. No edema. ABDOMEN: Soft. Liver and spleen not palpable. No tenderness. No mass palpable. PSYCHIATRY: Alert and oriented x3. Mood and affect normal. INTEGUMENT: Right radial catheterization site intact small puncture noted no bleeding or ecchymosis INVESTIGATIONS: Hemoglobin 10.7, creatinine 1.04, triglycerides 14 cholesterol 123 LDL 57 HDL 31 ASSESSMENT: -Acute non-ST elevation SC with acute cardiac intervention, stent to the LAD, scheduled for PCI of the left circumflex and RCA tomorrow -Coronary artery disease with prior stent in 2001 -Diabetes mellitus type 2 on oral hypoglycemic -Hyperlipidemia -Essential hypertension PLAN: Continue on aspirin Lipitor Plavix sliding scale. PCI for the left circumflex and RCA. Plan of care discussed with the patient at the bedside he is in agreement. We'll continue to follow closely. NON DESTRUCTIVE TESTING ENGINEER statement: Patient was seen and examined by nurse practitioner Emerita Rodríguez and all elements of the case discussed with attending Dr. Holt <Axel Holt - Last Filed: 12/20/16 19:35> Progress Note - Text Attending note. Date of service-12/20/2016 This patient was seen and examined by me . Discussed the patient with my nurse practitioner Ms. Rodríguez. Status post stent to the LAD. Currently no chest pain. Comfortable. On examination: Lungs-decreased breath sounds, cardiovascular first seconds are normal Investigations: Hemoglobin 10.7 Assessment and plan: Coronary artery disease now with stent to LAD.. Plan is for patient to go back to the Grocery Clerk Checking 4 further intervention. Follow with cardiology
--- NOTE | 2016-12-20 16:56 | P.PN ---
Subjective Patient is doing well. He underwent coronary intervention to the LAD, culprit vessel for the non-Q-wave MT, non-ST elevation MT. Block rupture and thrombus formation in the mid LAD and is waiting on a repeat intervention of a critical stenosis in the first obtuse marginal of the left circumflex Severe disease of the mid and distal RCA with aneurysmal proximal RCA No chest discomfort. His chest discomfort is not completely gone. On examination his breath sounds are normal no rhonchi no crackles, heart sounds are normal normal S1 normal S2 no murmurs or gallops, abdomen is soft nontender, extremities warm no edema On examination temperature 97.7F, pulse rate in the 60s, respirations normal, blood pressure 115/56. His mercury Impression Non-Q-wave myocardial infarction with block rupture of the mid LAD status post stenting Significant disease in the RCA and the circumflex awaiting re-intervention tomorrow Plan Continue IV nitroglycerin Continue dual antiplatelet therapy him a continue atenolol 25 mg by mouth daily continue atorvastatin Objective - Vital Signs Vital signs: Vital Signs Temp 97.7 F 12/20/16 15:03 Pulse 63 12/20/16 15:03 Resp 17 12/20/16 15:03 BP 115/56 12/20/16 15:03 Pulse Ox 97 12/20/16 15:03 Intake & Output 12/19/16 12/20/16 12/20/16 18:59 06:59 18:59 Intake Total 1190.756 368 420 Balance 1190.756 368 420 Weight 86 kg Intake: IV 185 368 220 0.9% NS AT 20 ML/HR 320 220 Nitroglycerin-D5w Pmx 50 48 mg In Dextrose/Water 1 250ml.bag @ 10 MCG/MIN 3 mls/hr IV .Q24H ONE Rx#: [id number] Intake, IV Titration 329.756 Amount Heparin Sodium,Porcine/ 129.756 D5w Pmx 25,000 unit In Dextrose/Water 1 500ml. bag @ 12 UNITS/KG/HR 19. 81 mls/hr IV .Q24H [facility] Rx #:[id number] Sodium Chloride 0.9% 1, 200 000 ml @ 100 mls/hr IV . Q10H [facility] Rx#:[id number] Oral 676 200 Other: Voiding Method Toilet Toilet Toilet # Voids 1 1 - Labs CBC & Chem 7: 12/20/16 05:51 12/20/16 05:51 Labs: Abnormal Lab Results - Last 24 Hours (Table) 12/19/16 12/20/16 12/20/16 Range/Units 20:52 05:51 05:51 RBC 3.65 L (4.30-5.90) m/uL Hgb 10.7 L (13.0-17.5) gm/dL Hct 32.7 L (39.0-53.0) % POC Glucose (mg/dL) 155 H (75-99) mg/dL Triglycerides 174 H (<150) mg/dL HDL Cholesterol 31 L (40-60) mg/dL 12/20/16 12/20/16 Range/Units 05:53 11:54 RBC (4.30-5.90) m/uL Hgb (13.0-17.5) gm/dL Hct (39.0-53.0) % POC Glucose (mg/dL) 133 H 124 H (75-99) mg/dL Triglycerides (<150) mg/dL HDL Cholesterol (40-60) mg/dL
[2016-12-20 17:17] LABS: Glucose,Whole Blood 106 mg/dL (75-99)
[2016-12-20 20:41] LABS: Glucose,Whole Blood 134 mg/dL (75-99)
[2016-12-21] MEDS: INSULIN LISPRO (humaLOG) 300 UNIT/3 ML VIAL SQ SCH ×4 (05:48→20:42)
[2016-12-21] MEDS: GLIMEPIRIDE 4 MG TAB PO SCH ×2 (05:48→18:07)
[2016-12-21 05:58] LABS: Basophils % (A) 0 %; CH 30.1; CHCM 33.7; Eosinophils # (A) 0.2 k/uL (0-0.7); Eosinophils % (A) 2 %; HCT 36.6 % (39.0-53.0); HDW 2.45; Luc # (Auto) 0.12; Luc % (Auto) 1; Lymphocytes # (A) 1.7 k/uL (1.0-4.8); Lymphocytes % (A) 20 %; MCH 29.5 pg (25.0-35.0); MCHC 32.9 g/dL (31.0-37.0); MCV 89.8 fL (80.0-100.0); Mean Platelet Volume 8.2; Monocytes # (A) 0.4 k/uL (0-1.0); Monocytes % (A) 5 %; Neutrophils # (A) 6.2 k/uL (1.3-7.7); Neutrophils % (A) 72 %; RBC 4.08 m/uL (4.30-5.90); RDW 13.6 % (11.5-15.5); WBC 8.6 k/uL (3.8-10.6); WBC (Perox) 8.98
[2016-12-21 06:13] LABS: Glucose,Whole Blood 158 mg/dL (75-99)
[2016-12-21] MEDS: CLOPIDOGREL 75 MG TAB PO SCH (06:23)
[2016-12-21] MEDS: ASPIRIN 81 MG CHEW PO SCH (06:23)
[2016-12-21] MEDS: ATORVASTATIN 80 MG TAB PO SCH (06:23)
[2016-12-21] MEDS: FENOFIBRATE 160 MG TAB PO SCH (06:23)
[2016-12-21] MEDS: ATENOLOL 25 MG TAB PO SCH (06:24)
[2016-12-21] MEDS ORDERED: IV FLUID CONTINUATION 1,000 ML IV ONE (07:15)
[2016-12-21] MEDS ORDERED: LIDOCAINE 2% INJ 20 MG/ML (20 ML MDV) ONE (07:29)
[2016-12-21] MEDS ORDERED: MIDAZOLAM 2 MG/2 ML VIAL ONE (07:29)
[2016-12-21] MEDS ORDERED: VERAPAMIL 2.5 MG/ML 2 ML AMP ONE (07:29)
[2016-12-21 07:40] LABS: Anion Gap 10 mmol/L; Blood Urea Nitrogen 16 mg/dL (9-20); Calcium 9.8 mg/dL (8.4-10.2); Carbon Dioxide 26 mmol/L (22-30); Chloride 107 mmol/L (98-107); Glucose 165 mg/dL (74-99); Non-African American GFR(MDRD) >60 (>60 ml/min/1.73 sqM); Potassium 4.4 mmol/L (3.5-5.1); Sodium 143 mmol/L (137-145)
[2016-12-21] MEDS ORDERED: AMIODARONE 450 MG in DEXTROSE 5% IN WATER 250 ML IV SCH ×2 (07:59)
[2016-12-21] MEDS ORDERED: LIDOCAINE 2% INJ 20 MG/ML SQ ONE (08:01)
[2016-12-21] MEDS ORDERED: METOPROLOL TARTRATE 5 MG/5 ML VIAL IVP ONE ×2 (08:02→08:04)
[2016-12-21] MEDS ORDERED: MIDAZOLAM 2 MG/2 ML VIAL IV ONE (08:02)
[2016-12-21] MEDS ORDERED: BIVALIRUDIN BOLUS 250 MG/50 ML IV ONE (08:05)
[2016-12-21] MEDS ORDERED: BIVALIRUDIN 250 MG in SODIUM CHLORIDE 0.9% 50 ML IV ONE (08:06)
[2016-12-21] MEDS: NITROGLYCERIN 1000MCG/10ML SYRINGE INTRACORON ONE ×2 (08:27→08:33)
[2016-12-21] MEDS ORDERED: niCARdipine 25 MG/10 ML VIAL ONE (08:30)
[2016-12-21] MEDS ORDERED: niCARdipine Syringe (1,000 mcg/10 mL) INTRACORON ONE (08:33)
[2016-12-21] MEDS ORDERED: IOHEXOL 350 MG/ML 125ML BOTTLE INJ ONE (08:38)
[2016-12-21] MEDS: DILTIAZEM 125 MG in SODIUM CHLORIDE 0.9% 100 ML IV SCH (08:38)
[2016-12-21] MEDS ORDERED: RX INFO: IV CONTRAST WAS GIVEN 1 EACH MISC MISCELLANE PRN (08:47)
[2016-12-21] MEDS ORDERED: ATROPINE SULFATE 0.1 MG/ML 10ML SYRINGE IV PRN (08:47)
[2016-12-21] MEDS ORDERED: MAG HYDROX/AL HYDROX/SIMETH 30 ML CUP PO PRN (08:47)
[2016-12-21] MEDS ORDERED: NITROGLYCERIN SL TABS 0.4 MG TAB SUBLINGUAL PRN (08:47)
[2016-12-21] MEDS ORDERED: ZOLPIDEM 5 MG TAB PO PRN (08:47)
[2016-12-21] MEDS ORDERED: CLOPIDOGREL 75 MG TAB ONE (08:51)
[2016-12-21] MEDS ORDERED: CLOPIDOGREL 75 MG TAB PO ONE (08:52)
[2016-12-21] MEDS: SODIUM CHLORIDE 0.9% 1,000 ML IV SCH ×2 (09:26→20:43)
[2016-12-21] MEDS: NITROGLYCERIN-D5W PMX 50 MG in DEXTROSE/WATER 1 250ML.BAG IV SCH (09:39)
[2016-12-21] MEDS ORDERED: ATENOLOL 25 MG TAB PO STA (09:44)
[2016-12-21 10:26] LABS: Glucose,Whole Blood 137 mg/dL (75-99)
--- NOTE | 2016-12-21 10:26 | P.PN ---
Subjective Patient is lying flat in bed. He is asymptomatic no shortness of breath no dizziness lightheadedness no chest discomfort. He is in atrial fibrillation with RVR that started this morning. On examination the afebrile 97.3F pulse rate on IV Cardizem is about 100 210 beats a minute irregular blood pressure 120/79 mmHg Heart sounds are irregular no murmurs or gallops Breath sounds are normal no rhonchi no crackles Abdomen soft nontender Extremities are warm no edema Impression New onset atrial fibrillation with RVR with minimal symptoms at rest Suggest Elevated TAJ VASC risk score, start Coumadin along with dual antiplatelet therapy, after a month switched to Plavix plus Coumadin Rate controlled with beta blockers. I will increase the dose of atenolol to 50 mg by mouth daily Check TSH Objective - Vital Signs Vital signs: Vital Signs Temp 97.3 F L 12/21/16 09:03 Pulse 101 H 12/21/16 09:18 Resp 16 12/21/16 09:03 BP 120/79 12/21/16 09:18 Pulse Ox 93 L 12/21/16 09:03 Intake & Output 12/20/16 12/21/16 12/21/16 18:59 06:59 18:59 Intake Total 420 178 237.34 Balance 420 178 237.34 Weight 85.5 kg Intake: IV 220 178 237.34 0.9% NS AT 20 ML/HR 220 160 Nitroglycerin-D5w Pmx 50 18 mg In Dextrose/Water 1 250ml.bag @ 10 MCG/MIN 3 mls/hr IV .Q24H ONE Rx#: [id number] Oral 200 Other: Voiding Method Toilet Toilet # Voids 1 - Labs CBC & Chem 7: 12/21/16 05:44 12/21/16 05:34 Labs: Abnormal Lab Results - Last 24 Hours (Table) 12/20/16 12/20/16 12/20/16 Range/Units 11:54 17:07 20:40 RBC (4.30-5.90) m/uL Hgb (13.0-17.5) gm/dL Hct (39.0-53.0) % Glucose (74-99) mg/dL POC Glucose (mg/dL) 124 H 106 H 134 H (75-99) mg/dL 12/21/16 12/21/16 12/21/16 Range/Units 05:34 05:44 06:03 RBC 4.08 L (4.30-5.90) m/uL Hgb 12.0 L (13.0-17.5) gm/dL Hct 36.6 L (39.0-53.0) % Glucose 165 H (74-99) mg/dL POC Glucose (mg/dL) 158 H (75-99) mg/dL
[2016-12-21 11:50] LABS: Glucose,Whole Blood 128 mg/dL (75-99)
[2016-12-21 17:32] LABS: Glucose,Whole Blood 129 mg/dL (75-99)
[2016-12-21] MEDS ORDERED: WARFARIN 5 MG TAB PO SCH (18:00)
--- NOTE | 2016-12-21 19:58 | PTCA ---
PERCUTANEOUSTRANS CORORONARY ANGIOGRAPHY PERCUTANEOUS CORONARY INTERVENTION: DATE OF SERVICE: December 21, 2016. PERFORMING PHYSICIAN: Zev Joel MD, automotive service professional. PROCEDURE PERFORMED: Successful stenting of the first obtuse marginal branch of the circumflex using a 2.25 x 15 mm Xience CARMELA with good angiographic results. INDICATION: This is a pleasant 70-year-old gentleman who sees Dr. Duncan on a regular basis who presented to the hospital few days ago with acute non-STEMI. He underwent heart catheterization and stenting of the LAD which she had a plaque rupture there. He was found to have severe disease involving the left circumflex as well as diffuse aneurysmal RCA. He was brought today to undergo a PCI of the left circumflex. APPROACH: Right common femoral artery. COMPLICATION: None. LEVEL OF SEDATION: Moderate. Sedation length of 42 minutes. PROCEDURE DESCRIPTION: After obtaining informed consent, the patient was brought to the cardiac laboratory secretary. The right common femoral artery was cannulated using micropuncture technique, and a micropuncture wire passed easily. Then, I placed a 6-Croatian sheath in the right common femoral artery. Subsequently, I did start the patient on anticoagulation using Angiomax. After that, subsequently I took JL4 guiding catheter and the left main was engaged. A whisper wire was used to wire the first obtuse marginal branch of the left circumflex. Subsequently I did balloon angioplasty using a 2-0 x 12 mm balloon which was inflated under 10 atmospheres for 20 seconds. After that, I deployed a 225 x 15 mm Xience CARMELA where the stent was positioned under fluoroscopy guidance and then it was deployed under atmospheres for 20 seconds. The following angiogram showed good angiographic result without perforation and without dissection with good flow in that OM. POSTPROCEDURE MANAGEMENT: 1. Dual anti-platelet therapy. 2. Risk factors modifications. 3. Follow up with the patient. MMODL / IJN: [id number] /
[2016-12-21 20:25] LABS: Glucose,Whole Blood 181 mg/dL (75-99)
[2016-12-22 03:28] VITALS: RESP 18
[2016-12-22 05:42] LABS: Glucose,Whole Blood 121 mg/dL (75-99)
[2016-12-22 05:55] LABS: Basophils % (A) 0 %; CH 30.3; CHCM 33.8; Eosinophils # (A) 0.1 k/uL (0-0.7); Eosinophils % (A) 1 %; HCT 36.6 % (39.0-53.0); HDW 2.42; HGB 11.9 gm/dL (13.0-17.5); Luc # (Auto) 0.13; Luc % (Auto) 1; Lymphocytes # (A) 1.4 k/uL (1.0-4.8); Lymphocytes % (A) 13 %; MCH 29.3 pg (25.0-35.0); MCHC 32.5 g/dL (31.0-37.0); MCV 89.9 fL (80.0-100.0); Mean Platelet Volume 7.9; Monocytes # (A) 0.5 k/uL (0-1.0); Monocytes % (A) 5 %; Neutrophils # (A) 8.4 k/uL (1.3-7.7); Neutrophils % (A) 80 %; RBC 4.07 m/uL (4.30-5.90); WBC 10.5 k/uL (3.8-10.6); WBC (Perox) 10.42
[2016-12-22 06:11] LABS: Non-African American GFR(MDRD) >60 (>60 ml/min/1.73 sqM)
[2016-12-22] MEDS: GLIMEPIRIDE 4 MG TAB PO SCH (06:11)
[2016-12-22] MEDS: INSULIN LISPRO (humaLOG) 300 UNIT/3 ML VIAL SQ SCH ×2 (06:11→12:33)
[2016-12-22 06:46] LABS: INR 1.2 (<1.2); Prothrombin Time 12.1 sec (9.0-12.0)
[2016-12-22] MEDS: DILTIAZEM 125 MG in SODIUM CHLORIDE 0.9% 100 ML IV SCH (07:50)
[2016-12-22] MEDS: ATORVASTATIN 80 MG TAB PO SCH (08:46)
[2016-12-22] MEDS: FENOFIBRATE 160 MG TAB PO SCH (08:46)
[2016-12-22] MEDS: ASPIRIN 81 MG CHEW PO SCH (08:46)
[2016-12-22] MEDS: CLOPIDOGREL 75 MG TAB PO SCH (08:46)
[2016-12-22] MEDS ORDERED: ATENOLOL 50 MG TAB PO SCH (09:00)
[2016-12-22] MEDS: NITROGLYCERIN-D5W PMX 50 MG in DEXTROSE/WATER 1 250ML.BAG IV SCH (09:12)
[2016-12-22] MEDS: SODIUM CHLORIDE 0.9% 1,000 ML IV SCH (09:12)
[2016-12-22 10:40] VITALS: BMI 28.6
--- NOTE | 2016-12-22 11:11 | PN ---
PROGRESS NOTE DATE OF SERVICE: 12/22/2016 PRESENTING COMPLAINT: Chest pain. INTERVAL HISTORY: This patient was seen by me yesterday on 12/21/2016. Patient is status post stent of the LAD and earlier today underwent stent to the OM by Dr. Joel. This was a right femoral approach. Lying in bed, comfortable. No chest pain or short of breath. Patient's daughter is in the room. No other new issues. Review of systems done for constitutional, cardiovascular, GI, pulmonary; relevant findings as above. Current medications are reviewed. On examination, afebrile, pulse 93, respirations 18, blood pressure 109/77, pulse ox 100% room air. GENERAL APPEARANCE: Lying in bed, comfortable. EYES: Pupils equal. Conjunctivae normal. NECK: JVD not raised. Mass not palpable. RESPIRATORY: Lungs with decreased breath sounds. CARDIOVASCULAR: 1st and 2nd sounds heard. No edema. ABDOMEN: Soft, nontender. Liver, spleen not palpable. PSYCHIATRY: Alert and oriented x3. Mood and affect were normal. INVESTIGATIONS: White count 10.5, hemoglobin 11.9. ASSESSMENT: 1. Acute non ST elevation myocardial infarction with initially stent of the left anterior descending to right brachial approach and then stent to the obtuse marginal through the right groin for the circumflex. 2. Coronary artery disease with prior stent in 2001. 3. Diabetes mellitus type 2 on oral hypoglycemics. 4. Hyperlipidemia. 5. Essential hypertension. PLAN: Continue current medications. Care was discussed with the patient. Follow with Cardiology. MMODL / IJN: [id number] /
--- NOTE | 2016-12-22 11:30 | P.PN ---
Subjective This is a pleasant 70-year-old gentleman with history of coronary artery disease and prior stenting of the proximal LAD in 2001, [place], he has history of diabetes, hypertension, hyperlipidemia, he is a nonsmoker. Exercises on the treadmill regularly. He states that around midnight last night he developed midsternal chest pressure and heaviness with associated diaphoresis. He states that the symptoms were exactly what he had in 2001. Patient had old nitroglycerin at home that he attempted to take without relief of symptoms, he took 2 baby aspirins and came to ER. Blood pressure on arrival here 155/70, heart rate in the 40s to 50s and temperature 96.9, he is 96% on room air. Chest x-ray shows mildly enlarged cardiac silhouette with central vascular congestion. EKG shows sinus bradycardia with anterior ST-T wave changes. EKG this morning shows sinus bradycardia with anterior ST-T wave changes. White blood cell count 7.7, hemoglobin 12.3, platelet count 223. D-dimer 0.4. Potassium 4.3, BUN 26, creatinine 1.0. Mag 1.7. Initial troponin negative. He still has mild chest pressure this morning, on heparin and nitro drips. 12/22/2016 Patient was taken to the cardiac catheterization lab where he underwent angioplasty with stenting of the left anterior descending artery, and subsequent angioplasty with stenting of circumflex artery. Patient was noted to go into atrial fibrillation yesterday morning, he is currently in normal sinus rhythm. He was given a dose of Coumadin, he is also on aspirin along with Plavix. He was seen and examined this morning, denies any chest pain, breathing has been stable. He has been up ambulating in the hallway. TSH normal. INR today 1.2. Objective - Vital Signs Vital signs: Vital Signs Temp 98.6 F 12/22/16 08:15 Pulse 77 12/22/16 08:15 Resp 18 12/22/16 08:15 BP 151/67 12/22/16 08:15 Pulse Ox 94 L 12/22/16 08:15 Intake & Output 12/21/16 12/22/16 12/22/16 18:59 06:59 18:59 Intake Total 417.34 600 180 Output Total 900 200 400 Balance -482.66 400 -220 Weight 85.4 kg 85.4 kg Intake: IV 237.34 Intake, IV Titration 600 Amount Sodium Chloride 0.9% 1, 600 000 ml @ 75 mls/hr IV . [id number] [facility] Rx#:[id number] Oral 180 180 Output: Urine 900 200 400 Other: Voiding Method Toilet Toilet # Voids 3 - Exam PHYSICAL EXAMINATION: HEENT: Head is atraumatic, normocephalic. Pupils equal, round. Neck is supple. There is no elevated jugular venous pressure. HEART EXAMINATION: Heart S1, S2 normal. No murmur or gallop heard. CHEST EXAMINATION: Lungs are clear to auscultation and precussion. No chest wall tenderness is noted on palpation or with deep breathing. ABDOMEN: Soft, nontender. Bowel sounds are heard. No organomegaly noted. Right groin soft, no evidence of any hematoma. EXTREMITIES: 2+ peripheral pulses with no evidence of peripheral edema and no calf tenderness noted. NEUROLOGIC patient is awake, alert and oriented -3. . - Labs CBC & Chem 7: 12/22/16 05:30 12/22/16 05:30 Labs: Abnormal Lab Results - Last 24 Hours (Table) 12/21/16 12/21/16 12/21/16 Range/Units 11:38 16:54 20:24 RBC (4.30-5.90) m/uL Hgb (13.0-17.5) gm/dL Hct (39.0-53.0) % Neutrophils # (1.3-7.7) k/uL PT (9.0-12.0) sec INR (<1.2) POC Glucose (mg/dL) 128 H 129 H 181 H (75-99) mg/dL 12/22/16 12/22/16 12/22/16 Range/Units 05:30 05:41 06:30 RBC 4.07 L (4.30-5.90) m/uL Hgb 11.9 L (13.0-17.5) gm/dL Hct 36.6 L (39.0-53.0) % Neutrophils # 8.4 H (1.3-7.7) k/uL PT 12.1 H (9.0-12.0) sec INR 1.2 H (<1.2) POC Glucose (mg/dL) 121 H (75-99) mg/dL Assessment and Plan Plan: Assessment and Plan #1 chest discomfort suggestive of possible acute coronary syndrome. Status post angioplasty with stenting of the LAD and circumflex artery. #2 known history of coronary artery disease with prior LAD stenting in 2001 #3 hypertension #4 diabetes #5 hyperlipidemia #6 paroxysmal atrial fibrillation Plan From cardiology's perspective, patient should be able to be discharged home today. We will continue Coumadin along with baby aspirin, Plavix, Lipitor 80, atenolol, and sublingual nitroglycerin as needed for chest pain. Lovenox for [address] Duncan. Follow-up appointment with Dr. Inman in the office post discharge. DNP note has been reviewed, I agree with a documented findings and plan of care. Patient was seen and examined.
[2016-12-22 12:01] LABS: Glucose,Whole Blood 151 mg/dL (75-99)
[2016-12-22] MEDS ORDERED: ENOXAPARIN 80 MG/0.8 ML SYRINGE SQ SCH (12:30)
[2016-12-22 12:31] VITALS: BP 135/73; PULSE 62; TEMP 98.2
--- NOTE | 2016-12-22 19:21 | P.DS ---
Providers Date of admission: 12/19/16 04:28 Expected date of discharge: 12/22/16 Attending physician: Axel Holt Consults: 12/19/16 04:17 Consult Physician Routine Consulting Provider: Zev Joel Consult Reason/Comments: acute coronary syndrome Do you want consulting provider notified?: Yes 12/19/16 12:16 Consult Physician Routine Consulting Provider: Rafi Villagran Consult Reason/Comments: Post Interventional patient Do you want consulting provider notified?: Already Contacted 12/21/16 08:48 Consult Physician Routine Consulting Provider: Rafi Villagran Consult Reason/Comments: Post Interventional patient Do you want consulting provider notified?: Already Contacted Primary care physician: [facility] Course: FINAL DIAGNOSES: Acute non-ST elevation NH with initially stent of the left anterior descending or 2 right brachial approach then stent to the obtuse marginal through the right groin for the circumflex -Coronary artery disease with prior stent in 2001. -Diabetes mellitus type 2 on oral hypoglycemics. -Hyperlipidemia. -Essential hypertension. HOSPTIAL COURSE: 70-year-old male presents to the emergency department with chest pain. Chest x- ray EKG and labs drawn cardiology consulted and patient admitted. Patient was taken to the cardiac catheterization lab where he underwent angioplasty with stenting to the left anterior descending artery and on a subsequent day angioplasty and stenting of the circumflex artery. Had an episode of atrial fibrillation and auto converted currently in sinus rhythm. Coumadin aspirin and Plavix were all added to his medication regimen. INR monitored and was 1.2 today. Patient will be bridged with Lovenox for 3 days. Patient's tolerating his diet ambulating in the hallways, moved his bowels today. Has had no further episodes of chest pain. Condition is stabilized and patient wishes to go home. PHYSICAL EXAM: CARDIOVASCULAR: First and second sounds noted no edema RESPIRATORY: Effort normal, lung sounds clear to auscultation bilaterally. INTEGUMENT: Right radial wrist entry wound clean dry and intact no ecchymosis. Right groin site clean dry and intact dressing in place, no ecchymosis or swelling noted. Patient was seen and examined by nurse practitioner Emerita Rodríguez in all elements of the case discussed with attending Dr. Holt DISPOSITION: Home with self-care area Patient Condition at Discharge: Fair Plan - Discharge Summary New Discharge Prescriptions: New Aspirin 81 mg PO DAILY Atenolol [Tenormin] 50 mg PO DAILY #30 tab Atorvastatin [Lipitor] 80 mg PO DAILY #30 tab Clopidogrel [Plavix] 75 mg PO DAILY #30 tab Enoxaparin [Lovenox] 80 mg SQ Q12HR #6 syr Nitroglycerin Sl Tabs [Nitrostat] 0.4 mg SUBLINGUAL Q5M PRN #25 tab PRN Reason: Chest Pain Warfarin [Coumadin] 5 mg PO DAILY@1800 #30 tab Continue Fenofibrate Nanocrystallized [Tricor] 145 mg PO DAILY metFORMIN HCL 1,000 mg PO BID Glimepiride [Amaryl] 4 mg PO BID Dulaglutide [Trulicity] 1.5 mg SQ Q7D Discontinued Simvastatin 80 mg PO DAILY Atenolol [Tenormin] 25 mg PO DAILY Aspirin 325 mg PO DAILY Discharge Medication List Dulaglutide [Trulicity] 1.5 mg SQ Q7D 12/19/16 [History] Fenofibrate Nanocrystallized [Tricor] 145 mg PO DAILY 12/19/16 [History] Glimepiride [Amaryl] 4 mg PO BID 12/19/16 [History] metFORMIN HCL 1,000 mg PO BID 12/19/16 [History] Aspirin 81 mg PO DAILY 12/22/16 [Rx] Atenolol [Tenormin] 50 mg PO DAILY #30 tab 12/22/16 [Rx] Atorvastatin [Lipitor] 80 mg PO DAILY #30 tab 12/22/16 [Rx] Clopidogrel [Plavix] 75 mg PO DAILY #30 tab 12/22/16 [Rx] Enoxaparin [Lovenox] 80 mg SQ Q12HR #6 syr 12/22/16 [Rx] Nitroglycerin Sl Tabs [Nitrostat] 0.4 mg SUBLINGUAL Q5M PRN #25 tab 12/22/16 [Rx ] Warfarin [Coumadin] 5 mg PO DAILY@1800 #30 tab 12/22/16 [Rx] Follow up Appointment(s)/Referral(s): Alin Bennett DO [Primary Care Provider] - 1-2 days Zev Joel MD [STAFF PHYSICIAN] - 1 Week Ambulatory/Diagnostic Orders: Prothrombin Time INR [LAB.AMB] Time Frame: 12/24/16, Facility: [facility], Location: [facility] Patient Instructions/Handouts: *Surgery [facility] - After Heart Catheterization - [employer] Instructions, Enoxaparin (By injection), Chest Pain (GEN), Left Heart Catheterization (DC) Activity/Diet/Wound Care/Special Instructions: low fat/low salt diet activity limitations; avoid stairs as much as possible and vigorous activity for 1 week do not submerge puncture site in area gently cleanse puncture site, no vigorous scrubbing is needed if coughing, laughing, straining to have a bowel movement apply gentle pressure Discharge Disposition: HOME SELF-CARE
== END 2016-12-22 15:06 | disposition home or self-care (01) | DRG 247 ==
LOC: EC 02:10 → 6SEL 04:28
PROVIDERS: ADMIT Hospitalist; ATTEND Hospitalist
PROC: B2111ZZ Fluoroscopy of Multiple Coronary Arteries using Low Osmolar Contrast (ICD-10-PCS; principal; 2016-12-19 09:59)
PROC: 4A023N7 Measurement of Cardiac Sampling and Pressure, Left Heart, Percutaneous Approach (ICD-10-PCS; principal; 2016-12-19 09:59)
PROC: 027034Z Dilation of Coronary Artery, One Artery with Drug-eluting Intraluminal Device, Percutaneous Approach (ICD-10-PCS; principal; 2016-12-19 09:59)
DX: I21.4 Non-ST elevation (NSTEMI) myocardial infarction (principal); E11.9 Type 2 diabetes mellitus without complications; I48.0 Paroxysmal atrial fibrillation; T82.855A Stenosis of coronary artery stent, initial encounter; I10 Essential (primary) hypertension; E78.5 Hyperlipidemia, unspecified; I25.10 Atherosclerotic heart disease of native coronary artery without angina pectoris; I25.2 Old myocardial infarction; Y83.1 Surgical operation with implant of artificial internal device as the cause of abnormal reaction of the patient, or of later complication, without mention of misadventure at the time of the procedure; Z79.82 Long term (current) use of aspirin; Z79.84 Long term (current) use of oral hypoglycemic drugs; Z79.899 Other long term (current) drug therapy; Z82.49 Family history of ischemic heart disease and other diseases of the circulatory system; Z87.891 Personal history of nicotine dependence
CPT/HCPCS: 36415; 71010; 80048; 80053; 80061; 82150; 82550; 82553; 82565; 83690; 83735; 84484; 85025; 85379; 85610; 85730; 93005; 93306; 93454; 94760; 96365; 96366; 96368; 99291

== ENCOUNTER → 2016-12-24 | Outpatient (CLI) | payer MEDICARE, OTHER ==
[2016-12-24 14:16] LABS: INR 1.3 (<1.2); Prothrombin Time 12.6 sec (9.0-12.0)
== END | disposition home or self-care (01) ==
LOC: LABWHC1 13:20
PROVIDERS: ATTEND Internal Medicine Interventional Cardiology
DX: I48.91 Unspecified atrial fibrillation (principal)
CPT/HCPCS: 36415; 85610

== ENCOUNTER 2017-12-16 06:59 | Day surgery (SDC) | payer MEDICARE, OTHER ==
[2017-12-13 15:23] VITALS: BMI 26.6
[~2017-12-16 06:59] MED LIST: LACTATED RINGERS 1,000 ML IV SCH
[2017-12-16 07:19] VITALS: TEMP 97.4
[2017-12-16] MEDS ORDERED: ASPIRIN 81 MG PO STA (07:22)
[2017-12-16 07:26] LABS: Glucose,Whole Blood 126 mg/dL (75-99)
[2017-12-16] MEDS ORDERED: PROPOFOL 10 MG/ML 20 ML VIAL IV ONE (08:31)
[2017-12-16] MEDS ORDERED: LIDOCAINE 1% INJ 10MG/ML (20 ML MDV) ONE (08:31)
--- NOTE | 2017-12-16 09:02 | P.PCN ---
Date of Procedure: 12/16/17 Procedure(s) Performed: Procedure: Colonoscopy and polypectomy. Preoperative diagnosis: Hemoccult positive stools. Postoperative diagnosis: 1. Small right colon polyp snared but no large polyps or cancer. 2. Diffuse diverticulosis with no evidence of acute diverticulitis or strictures. 3. Low-grade internal hemorrhoids without evidence of bleeding at the time of this exam. Preparation: HalfLytely prep. Sedation: Was provided by anesthesia. Brief clinical history: The patient is a 71-year-old male who is scheduled for this evaluation because of finding of blood in the stools. The patient denies abdominal pains, change in bowel habits or overt bleeding. No upper GI complaints. There is no history of anemia. He had several colonoscopies over the years the last was around 7 years ago. Procedure: With the patient on his left lateral decubitus position and after informed consent and adequate sedation, the perianal area was inspected and it did not show any fissures or fistulas. There were no masses felt on digital rectal examination. The Olympus CFQ 160L video colonoscope was then inserted in the rectum in the usual fashion and advanced to the cecum. There was a small polyp in the proximal right colon which I snared and retrieved by suction but there were no other polyps or tumors. The mucosa appeared healthy. There were multiple diverticular orifices seen scattered along the length of the bowel including the right side with no evidence of acute diverticulitis or strictures. I retroflexed the endoscope in the rectum before the endoscope was withdrawn. Low-grade internal hemorrhoids were noted but there was no evidence of bleeding. The patient tolerated the procedure well. Plan: The patient was reassured. Discussed dietary measures and local care for hemorrhoids. In the absence of upper GI complaints or anemia, I did not recommend upper GI workup at this time for the workup of his Hemoccult positive stools and that can be kept as a contingency based on his course. Consideration would be made for repeat colonoscopy in 5 years depending on his overall health at that time.
[2017-12-16 09:32] VITALS: RESP 16
[2017-12-16 09:33] VITALS: BP 156/77; PULSE 77
== END 2017-12-16 09:47 | disposition home or self-care (01) ==
LOC: ORWHC2ENDO 06:59
DX: D12.2 Benign neoplasm of ascending colon (principal); K57.30 Diverticulosis of large intestine without perforation or abscess without bleeding; K64.8 Other hemorrhoids; I10 Essential (primary) hypertension; I25.10 Atherosclerotic heart disease of native coronary artery without angina pectoris; I25.2 Old myocardial infarction; E78.5 Hyperlipidemia, unspecified; E11.9 Type 2 diabetes mellitus without complications; Z79.82 Long term (current) use of aspirin; Z79.02 Long term (current) use of antithrombotics/antiplatelets; Z79.01 Long term (current) use of anticoagulants; Z79.84 Long term (current) use of oral hypoglycemic drugs; Z79.899 Other long term (current) drug therapy; Z95.5 Presence of coronary angioplasty implant and graft; Z91.012 Allergy to eggs; Z91.048 Other nonmedicinal substance allergy status
CPT/HCPCS: 88305; 45385; J2001; J2704

== ENCOUNTER 2022-07-07 06:10 | Day surgery (SDC) | payer MEDICARE, OTHER ==
[2022-07-02 15:36] VITALS: BMI 27.3
[2022-07-07 07:00] VITALS: RESP 18; TEMP 97.2
[2022-07-07 07:23] LABS: Glucose,Whole Blood 121 mg/dL (70-110)
[2022-07-07] MEDS ORDERED: PROPOFOL 10 MG/ML 20 ML VIAL IV ONE (07:45)
--- NOTE | 2022-07-07 08:01 | P.PCN ---
Date of Procedure: 07/07/22 Procedure(s) Performed: BRIEF HISTORY: Patient is a 76-year-old pleasant white male scheduled for an elective colonoscopy as a part of evaluation of prior history of colon polyps. His last colonoscopy was 5 years ago and was noted to have a tubular adenoma. PROCEDURE PERFORMED: Colonoscopy. PREOPERATIVE DIAGNOSIS: History of colon polyps. IV sedation per Anesthesia. PROCEDURE: After informed consent was obtained, the patient, was brought into the endoscopy unit. IV sedation was administered by Anesthesia under continuous monitoring. Digital rectal examination was normal. Initially the Olympus CF-160 flexible video colonoscope was then inserted in the rectum, gradually advanced into the cecum without any difficulty. Careful examination was performed as the scope was gradually being withdrawn. Ileocecal valve and the appendiceal orifice were visualized and appeared normal. Prep was excellent. Mucosa of the cecum, ascending colon, transverse colon, descending colon, sigmoid colon, and rectum appeared normal. Scattered sigmoid diverticulosis. Retroflexion was performed in the rectum and no lesions were seen. The patient tolerated the procedure well. IMPRESSION: Normal-appearing colon from rectum to cecum with some colorectal neoplasia Scattered sigmoid diverticulosis . RECOMMENDATIONS: Findings of this examination were discussed with the patient as well as his family.. He was advised to be a high-fiber diet and fiber supplements a regular basis and have a repeat colonoscopy in 5 years because of the prior history of colon polyps
[2022-07-07 08:07] VITALS: PULSE 58
[2022-07-07 08:17] VITALS: BP 152/74
== END 2022-07-07 08:31 | disposition home or self-care (01) ==
LOC: ORWHC2ENDO 06:10
PROVIDERS: ATTEND Internal Medicine Gastroenterology
DX: Z12.11 Encounter for screening for malignant neoplasm of colon (principal); K57.30 Diverticulosis of large intestine without perforation or abscess without bleeding; I25.10 Atherosclerotic heart disease of native coronary artery without angina pectoris; I10 Essential (primary) hypertension; Z95.5 Presence of coronary angioplasty implant and graft; Z79.01 Long term (current) use of anticoagulants; E11.9 Type 2 diabetes mellitus without complications; Z79.85 Long-term (current) use of injectable non-insulin antidiabetic drugs; Z79.84 Long term (current) use of oral hypoglycemic drugs; Z98.890 Other specified postprocedural states; Z79.899 Other long term (current) drug therapy
CPT/HCPCS: G0121; J2704; 45378

== ENCOUNTER 2024-07-11 05:59 | Day surgery (SDC) | payer MEDICARE, OTHER ==
[2024-07-10 13:23] VITALS: BMI 25.4
[~2024-07-11 05:59] MED LIST changes: -LACTATED RINGERS 1,000 ML IV SCH; +MIDAZOLAM 2 MG/2 ML VIAL IV PRN; +fentaNYL (PF) 50 MCG/ML 5 ML AMP IVP PRN
[2024-07-11 07:05] VITALS: TEMP 98.5
[2024-07-11] MEDS: IV FLUID CONTINUATION 1,000 ML IV ONE (07:15)
[2024-07-11] MEDS ORDERED: SODIUM CHLORIDE 0.9% 500 ML 500 ML IV SCH (07:15)
[2024-07-11] MEDS: BENZOCAINE SPRAY 1 EACH MM ONE (07:22)
[2024-07-11] MEDS: BENZOCAINE SPRAY 1 EACH MM SCH (07:27)
[2024-07-11] MEDS: MIDAZOLAM 2 MG/2 ML VIAL IVP ONE (07:38)
[2024-07-11] MEDS: fentaNYL (PF) 50 MCG/1 ML VIAL IVP ONE (07:38)
[2024-07-11 07:44] VITALS: RESP 16
[2024-07-11 08:30] VITALS: BP 153/72; PULSE 56
--- NOTE | 2024-07-11 08:42 | CC ---
CARDIAC CATHETERIZATION REPORT PROCEDURE PERFORMED: Transesophageal echo. INDICATIONS: Pulmonary hypertension and mitral regurgitation. PROCEDURE NOTE: After obtaining informed consent, transesophageal echocardiogram was performed in left lateral position using an Omniplane probe. Local and IV sedation were obtained using 2 mg of Versed, 50 mcg of fentanyl, and xylocaine spray. The patient tolerated the procedure well without any obvious immediate complications. Total sedation time was 10 minutes. FINDINGS: Mitral valve appears heavily calcified with moderate restriction in leaflet mobility. The peak gradient across the mitral valve is around 10.5 mm where as the mean gradient is 4.5 mm consistent with mild to moderate mitral stenosis. There is moderate to severe central mitral regurgitation noted. Aortic valve is a 3-leaflet valve. There is mild aortic regurgitation noted. Aortic root measures within normal limits. Tricuspid valve shows mild eccentric jet of tricuspid regurgitation. There is biatrial enlargement left more than the right. Left ventricular size and systolic function are normal. There is no evidence of [id number] shunt by color-flow Doppler or right-to- left shunt by agitated saline contrast study. CONCLUSIONS: 1. Moderate to severe mitral regurgitation, mild to moderate mitral stenosis. 2. Normal LV systolic function. 3. Severe left atrial enlargement. 4. Severe pulmonary hypertension based on 2D echo. PLAN: I am going to do right and left heart catheterizations and if the pulmonary hypertension is confirmed, refer him to a cardiothoracic surgeon for mitral valve replacement. MMODL / IJN: [id number] /
== END 2024-07-11 09:07 | disposition home or self-care (01) ==
LOC: CATHCVL 05:59
PROVIDERS: ATTEND Internal Medicine Cardiovascular Disease
DX: I48.0 Paroxysmal atrial fibrillation (principal); I05.2 Rheumatic mitral stenosis with insufficiency; I27.20 Pulmonary hypertension, unspecified; I10 Essential (primary) hypertension; E11.9 Type 2 diabetes mellitus without complications; E78.5 Hyperlipidemia, unspecified; F17.210 Nicotine dependence, cigarettes, uncomplicated; Z79.82 Long term (current) use of aspirin; Z79.84 Long term (current) use of oral hypoglycemic drugs; Z79.899 Other long term (current) drug therapy
CPT/HCPCS: 93312; 93320; 93325; J2250; J3010

== ENCOUNTER → 2024-08-16 | Day surgery (SDC) | payer MEDICARE, OTHER ==
[~2024-08-16] MED LIST changes: +ALPRAZolam 0.25 MG TAB PO PRN; +ALPRAZolam 0.5 MG TAB PO PRN; +ATORVASTATIN 80 MG TAB PO STA; +HEPARIN SODIUM,PORCINE (1 ML) 2,500 UNIT in SODIUM CHLORIDE 0.9% 250 ML IRRIGATION PRN; +HEPARIN SODIUM,PORCINE 10,000 UNIT in SODIUM CHLORIDE 0.9% 1,000 ML IRRIGATION PRN; +METOPROLOL TARTRATE 5 MG/5 ML VIAL IVP STA; -MIDAZOLAM 2 MG/2 ML VIAL IV PRN; +NITROGLYCERIN SL TABS 0.4 MG TAB SUBLINGUAL PRN; +PIOGLITAZONE 30 MG TAB PO STA; +SODIUM CHLORIDE 0.9% 1,000 ML in EMPTY BAG 1 BAG IV SCH; -fentaNYL (PF) 50 MCG/ML 5 ML AMP IVP PRN; +metFORMIN 500 MG TAB PO STA
[2024-08-16 09:37] LABS: Glucose,Whole Blood 177 mg/dL (70-110)
[2024-08-16] MEDS: IV FLUID CONTINUATION 1,000 ML IV ONE (09:45)
[2024-08-16] MEDS: METOPROLOL TARTRATE 5 MG/5 ML VIAL IVP STA (09:50)
[2024-08-16 10:23] VITALS: BP 129/98; PULSE 135; RESP 16; TEMP 97.6
[2024-08-16] MEDS: atenoloL 50 MG TAB PO STA (12:08)
[2024-08-16] MEDS: ASPIRIN 325 MG TAB PO STA (12:13)
== END ==
LOC: CATHCVL 09:07
PROVIDERS: ATTEND Internal Medicine Cardiovascular Disease
DX: I34.0 Nonrheumatic mitral (valve) insufficiency (principal); Z53.09 Procedure and treatment not carried out because of other contraindication

== ENCOUNTER 2024-08-17 09:53 | Day surgery (SDC) | payer MEDICARE, OTHER ==
[~2024-08-17 09:53] MED LIST changes: +ASPIRIN 325 MG TAB PO STA; -ATORVASTATIN 80 MG TAB PO STA; -HEPARIN SODIUM,PORCINE (1 ML) 2,500 UNIT in SODIUM CHLORIDE 0.9% 250 ML IRRIGATION PRN; -HEPARIN SODIUM,PORCINE 10,000 UNIT in SODIUM CHLORIDE 0.9% 1,000 ML IRRIGATION PRN; -METOPROLOL TARTRATE 5 MG/5 ML VIAL IVP STA; -PIOGLITAZONE 30 MG TAB PO STA; -SODIUM CHLORIDE 0.9% 1,000 ML in EMPTY BAG 1 BAG IV SCH; -metFORMIN 500 MG TAB PO STA
[2024-08-17 10:16] LABS: Glucose,Whole Blood 168 mg/dL (70-110)
[2024-08-17 10:22] VITALS: RESP 18; TEMP 97.6
[2024-08-17] MEDS ORDERED: SODIUM CHLORIDE 0.9% 1,000 ML in EMPTY BAG 1 BAG IV SCH (11:30)
[2024-08-17] MEDS: LIDOCAINE 1% INJ 10MG/ML (20 ML MDV) SQ ONE (11:41)
[2024-08-17] MEDS: fentaNYL (PF) 50 MCG/ML 2 ML AMP IVP ONE (11:41)
[2024-08-17] MEDS: MIDAZOLAM 2 MG/2 ML VIAL IVP ONE (11:41)
[2024-08-17] MEDS: VERAPAMIL SYRINGE (5 MG/10 ML) INTRAARTER ONE (11:43)
[2024-08-17] MEDS: IV FLUID CONTINUATION 1,000 ML IV ONE (11:54)
[2024-08-17] MEDS: HEPARIN SODIUM 1,000 UN/ML (10ML VL) IVP ONE (11:56)
[2024-08-17] MEDS: IOPAMIDOL-370 100ML BTL INJ ONE (12:17)
[2024-08-17 12:27] LABS: O2 Sat Blood Gas 63.7 %
[2024-08-17 12:28] LABS: O2 Sat Blood Gas 68.1 %
[2024-08-17 12:32] LABS: O2 Sat Blood Gas 74.1 %
[2024-08-17 16:46] VITALS: BP 117/75; PULSE 96
--- NOTE | 2024-08-18 10:51 | CC ---
CARDIAC CATHETERIZATION REPORT INDICATION: Mitral stenosis and regurgitation with pulmonary hypertension. PROCEDURE NOTE: After obtaining informed consent, right and left heart catheterization were performed via the right radial artery and right brachial vein using standard Zhen catheters and a standard right heart catheter. The patient tolerated the procedure well without any obvious immediate complications. Total sedation time was 35 minutes. Right radial artery access was obtained using Seldinger technique, 6-Chadian sheath was placed. Catheters and wires were floated into the ascending aorta under fluoroscopic guidance. The patient received verapamil and heparin per protocol and a TR band will be used for hemostasis. Right heart catheterization was performed via the right brachial vein. The catheter was floated into the pulmonary artery under fluoroscopic guidance. Procedure was completed uneventfully. FINDINGS: 1. Hemodynamics: Left ventricular end-diastolic pressure is 8 to 10 mm. There is no significant gradient across the aortic valve. 2. Left ventriculogram: Left ventriculogram is not performed. 3. Angiographic data: a.Right coronary artery: Right coronary artery is a large dominant vessel that shows irregular ectatic and aneurysmal changes proximally and diffusely throughout with moderate disease involving both PDA and PLV. b.Left main coronary artery is a normal-sized vessel, appears calcified, but is free of significant stenosis. Divides into circumflex coronary artery and left anterior descending coronary artery. Previously, the OM branch was stented. The stent appears patent. LAD appears diffusely diseased. The previously stented segment within the proximal LAD appears patent. The diagonal branches are free of significant disease. CONCLUSIONS: 1. 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 2. Right heart catheterization: The hemodynamics reveal a mean pulmonary capillary wedge pressure of 15 mm. PA systolic pressure is 47 mm. The diastolic pressure of 21 with a mean of 31. RV systolic pressure is 45 mm. Mean right atrial pressure is 5 mm. Saturation run had been sent and results are pending at this time. CONCLUSIONS: 1. Patent stents within the LAD and circumflex coronary artery. 2. Right heart catheterization reveals moderate pulmonary hypertension. MMODL / IJN: [id number] /
== END 2024-08-17 16:47 | disposition home or self-care (01) ==
LOC: CATHCVL 09:53
PROVIDERS: ATTEND Internal Medicine Cardiovascular Disease
DX: I25.10 Atherosclerotic heart disease of native coronary artery without angina pectoris (principal); I25.84 Coronary atherosclerosis due to calcified coronary lesion; Z95.5 Presence of coronary angioplasty implant and graft; I05.2 Rheumatic mitral stenosis with insufficiency; I27.20 Pulmonary hypertension, unspecified; I10 Essential (primary) hypertension; E11.9 Type 2 diabetes mellitus without complications; E78.5 Hyperlipidemia, unspecified; Z79.84 Long term (current) use of oral hypoglycemic drugs; Z79.85 Long-term (current) use of injectable non-insulin antidiabetic drugs; Z79.82 Long term (current) use of aspirin; Z79.01 Long term (current) use of anticoagulants; Z79.899 Other long term (current) drug therapy
CPT/HCPCS: 93460; 85018; 82810; C1894; C1751; J2250; J2003; J3010; J1644; Q9967